=== PATIENT | male | born 1985 | race Caucasian/White ===

== ENCOUNTER 2019-09-03 18:33 | Emergency (ER) | payer BC, SELFPAY ==
[2019-09-03 18:34] VITALS: BP 118/60; PULSE 105; RESP 16; TEMP 36.7; O2SAT 99; BMI 27.5
--- NOTE | 2019-09-03 18:46 | ED.DCSUM_ITS ---
- ER Visit Summary Date of Service: 09/03/19 Chief Complaint: Rash History of Present Illness: The patient is a 34 M who presents with a rash. He states it started months ago but got worse recently. It is on his arms and chest. Nothing really makes it better or worse. 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 It does itch. He tried putting alcohol and peroxide on these areas without relief. He states he has been using different laundry detergents and does not know if that could be the cause. Physical Examination: Vital signs are reviewed. Skin exam reveals a rash with excoriations to the bilateral arms and upper chest. No erythema or drainage from these areas. Test Results: None performed Emergency Department Course and Treatment: Patient appears to have a dermatitis. It is not diffuse I doubt it is the laundry detergent. He works outside and his arms are exposed so I presume it could be something environmental. I will give him hydrocortisone cream and prednisone for home. He will follow-up with his primary care physician Treatment Plan: [] Disposition: Discharge Impression: Dermatitis This note was generated with [employer] dictation software. It may contain incorrect words, spelling, and punctuation that were not noted in review of the chart prior to signing ED Disposition - Plan for ED Patient: Disposition: Home or Assisted Living Instructions: ED General Allergic Reactions Prescriptions: Prednisone [Deltasone] 40 mg PO DAILY #10 tab Transmission Status: Pending to [facility]/pharmacy #[id number] Hydrocortisone 1% Oint [Hytone] 1 applic TOPICAL BID #1 tube Transmission Status: Pending to [facility]/pharmacy #[id number] Referrals: [facility],Out of [Primary Care Provider] -
[2019-09-03 19:11] VITALS: PULSE 98; RESP 20
--- NOTE | 2019-09-03 19:31 | NURSING ---
UPON GIVING PT DC INSTRUCTIONS. HE EXPRESSED CONCERNS RE: HIS DIAGNOSIS. STATES HE HAS HAD THIS PROBLEM IN THE PAST, AND HE BELIEVES IT IS BACTERIAL. DR PARRISH INFORMED OF PT'S CONCERNS. PT ENCOURAGE TO TAKE MEDICATION AND IF SYMPTOMS DON'T IMPROVE IN 3-4 DAYS HE CAN RETURN TO ED OR URGENT CARE OR A PCP IN THE AREA.
== END 2019-09-03 19:18 | disposition home or self-care (01) ==
LOC: ED 19:04
PROVIDERS: Emergency Provider Emergency Medicine
DX: L30.9 Dermatitis, unspecified (principal); Z72.0 Tobacco use
CPT/HCPCS: 99282